=== PATIENT | female | born 1970 | race Caucasian/White ===

== ENCOUNTER 2021-08-14 17:30 | Inpatient (IN) | payer BC, OTHER ==
[~2021-08-14] VITALS: Ht 152.4 cm; Wt 59.0 kg
[2021-08-14 17:45] VITALS: BP_SYST 120
[2021-08-14 18:33] LABS: MEAN CORPUSCULAR HEMOGLOBIN 28 pg (27-31); MEAN CORPUSCULAR HGB CONC 34 % (32-36); MEAN CORPUSCULAR VOLUME 83 fL (79.0-98.0); RED BLOOD CELL COUNT(AUTO) 2.16 MIL/uL (4.2-6.2); RED CELL DISTRIBUTION WIDTH 14.9 % (9.0-15.0); WHITE BLOOD COUNT (AUTO) 9.7 K/uL (4.8-10.8)
[2021-08-14 18:40] LABS: HEMATOCRIT 17.8 % (36-48); PLATELET COUNT (AUTO) 20 K/uL (130-430)
[2021-08-14 18:43] LABS: ANION GAP 6 (5-15); CALCIUM 8.2 mg/dL (8.4-11.0); CHLORIDE 93 mmol/L (98-107); CREATININE 0.47 mg/dL (0.55-1.30); GLUCOSE 170 mg/dL (70-99); POTASSIUM 3.6 mmol/L (3.5-5.1); SODIUM SERUM 127 mmol/L (136-145); UREA NITROGEN, BLOOD 12 mg/dL (8-21)
[2021-08-14 18:50] LABS: ATYPICAL LYMPHOCYTES % 2 % (0-0); BAND % (MANUAL) 1 % (0-6); BASOPHILS % (MANUAL) 0 % (0-2); BLASTS, MANUAL % 5 % (0-0); CORRECTED WHITE BLOOD COUNT 6.4 K/uL (4.5-11.0); EOSINOPHILS % (MANUAL) 0 % (0-7); LYMPHOCYTES % (MANUAL) 36 % (20-46); METAMYELOCYTES % 0 % (0-0); MONOCYTES % (MANUAL) 13 % (0-11); MYELOCYTES % 0 % (0-0); PROMYELOCYTES % 0 % (0-0)
[2021-08-14 18:58] LABS: ALANINE AMINOTRANSFERASE 16 U/L (12-78); ALBUMIN 2.7 g/dL (3.4-4.8); ASPARTATE AMINOTRANSFERASE 15 U/L (10-37); THYROID STIMULATING HORMONE 1.67 uIu/mL (0.36-3.74); TOTAL BILIRUBIN 0.9 mg/dL (0.0-1.0)
[2021-08-14 19:08] LABS: GFR AFRICAN AMERICAN 180 mL/min (>90)
[2021-08-14] MEDS ORDERED: MUPIROCIN 2% TOPICAL OINTMENT 22 GM NS PRN (20:30)
[2021-08-14] MEDS ORDERED: POTASSIUM CHLORIDE 20 MEQ TAB.PRT.SR PO PRN (20:30)
[2021-08-14] MEDS ORDERED: LORazepam 2 MG/ML VIAL IVP PRN (20:30)
[2021-08-14] MEDS ORDERED: ZOLPIDEM TARTRATE 5 MG TABLET PO PRN (20:30)
[2021-08-14] MEDS ORDERED: MORPHINE 2 MG/ML INJ. SYRINGE IVP PRN ×2 (20:30)
[2021-08-14] MEDS ORDERED: DOCUSATE SODIUM 100 MG CAPSULE PO PRN (20:30)
[2021-08-14] MEDS ORDERED: MAGNESIUM SULFATE 50 ML IV PRN (20:30)
[2021-08-14] MEDS: NACL 0.9% 1,000 ML IV SCH ×2 (20:30→23:30)
[2021-08-14] MEDS ORDERED: DIPH28.44 (20:57)
[2021-08-14] MEDS ORDERED: ACYC400T5 PO (20:57)
[2021-08-14] MEDS ORDERED: ATOV750O PO (20:57)
[2021-08-14] MEDS ORDERED: DIPH25CA83 PO (20:57)
[2021-08-14] MEDS ORDERED: MOM PO (20:57)
[2021-08-14] MEDS ORDERED: EMLA (20:57)
[2021-08-14] MEDS ORDERED: CHOL100062 PO (20:57)
[2021-08-14] MEDS ORDERED: COLL100 PO (20:57)
[2021-08-14] MEDS ORDERED: TRIA15CR2 (20:57)
[2021-08-14] MEDS ORDERED: PROC-11 PO (20:57)
[2021-08-14] MEDS ORDERED: OXYC-521 PO (20:57)
[2021-08-14] MEDS ORDERED: ASCO-339 PO (20:57)
[2021-08-14] MEDS ORDERED: TRAM50TA2 PO (20:57)
[2021-08-14] MEDS ORDERED: ISAV186C2 PO (20:57)
[2021-08-14] MEDS ORDERED: SUCR1ORA2 PO (20:57)
[2021-08-14] MEDS ORDERED: TACR0.5C PO (20:57)
[2021-08-14] MEDS ORDERED: URSO300C24 PO (20:57)
[2021-08-14] MEDS ORDERED: MAGN27TA2 PO (20:57)
[2021-08-14] MEDS ORDERED: PRO40 PO (20:57)
[2021-08-14 21:24] LABS: TOTAL IRON BIND. CAPACITY 208 ug/dL (250-450)
[2021-08-14] MEDS ORDERED: oxyCODONE HCL 5 MG TABLET PO ONE (21:45)
[2021-08-14] MEDS ORDERED: OXYCODONE/ACETAMINOPHEN 5-325 TABLET ONE (22:09)
[2021-08-14] MEDS ORDERED: COMMUNICATION ORDER XX ONE (22:45)
[2021-08-14] MEDS ORDERED: HYDROCORTISONE 10 MG TABLET (CORTEF) PO ONE (22:45)
[2021-08-15 00:23] VITALS: BP_SYST 106
[2021-08-15 02:00] VITALS: BP_SYST 123
[2021-08-15] MEDS: ACETAMINOPHEN 325 MG TABLET PO PRN ×4 (03:42→11:51)
[2021-08-15] MEDS: DIPHENHYDRAMINE INJ 50 MG/ML VIAL IVP PRN ×3 (03:42→23:22)
[2021-08-15] MEDS: ONDANSETRON HCL 4 MG/2 ML VIAL IVP PRN ×2 (07:47→23:24)
[2021-08-15] MEDS: NACL 0.9% 1,000 ML IV SCH ×2 (07:48→23:21)
[2021-08-15 08:00] VITALS: BP_SYST 125
[2021-08-15 08:38] LABS: MEAN CORPUSCULAR HEMOGLOBIN 29 pg (27-31); MEAN CORPUSCULAR HGB CONC 34 % (32-36); MEAN CORPUSCULAR VOLUME 85 fL (79.0-98.0); RED BLOOD CELL COUNT(AUTO) 2.38 MIL/uL (4.2-6.2); RED CELL DISTRIBUTION WIDTH 15.2 % (9.0-15.0); WHITE BLOOD COUNT (AUTO) 5.9 K/uL (4.8-10.8)
[2021-08-15 08:54] LABS: CALCIUM 8.1 mg/dL (8.4-11.0); CREATININE 0.42 mg/dL (0.55-1.30); POTASSIUM 3.3 mmol/L (3.5-5.1)
[2021-08-15] MEDS ORDERED: POTASSIUM CHLORIDE 20 MEQ TAB.PRT.SR PO ONE (09:45)
[2021-08-15] MEDS ORDERED: HYDROCORTISONE 10 MG TABLET (CORTEF) PO ONE (10:15)
[2021-08-15 10:53] LABS: HEMATOCRIT 20.2 % (36-48); HEMOGLOBIN 6.9 g/dL (12.0-16.0)
[2021-08-15 10:54] LABS: PLATELET COUNT (AUTO) 16 K/uL (130-430)
[2021-08-15 12:00] VITALS: BP_SYST 122
[2021-08-15] MEDS: oxyCODONE HCL 5 MG TABLET PO PRN ×2 (12:46→19:01)
[2021-08-15 13:03] LABS: CORRECTED WHITE BLOOD COUNT 3.8 K/uL (4.5-11.0)
[2021-08-15 13:04] LABS: BASOPHILS % (MANUAL) 0 % (0-2); EOSINOPHILS % (MANUAL) 3 % (0-7); LYMPHOCYTES % (MANUAL) 58 % (20-46); MONOCYTES % (MANUAL) 20 % (0-11)
[2021-08-15 16:00] VITALS: BP_SYST 129
[2021-08-15 21:25] LABS: HEMATOCRIT 22.8 % (36-48); HEMOGLOBIN 7.8 g/dL (12.0-16.0); MEAN CORPUSCULAR HEMOGLOBIN 29 pg (27-31); MEAN CORPUSCULAR HGB CONC 34 % (32-36); MEAN CORPUSCULAR VOLUME 84 fL (79.0-98.0); RED BLOOD CELL COUNT(AUTO) 2.71 MIL/uL (4.2-6.2); RED CELL DISTRIBUTION WIDTH 15.2 % (9.0-15.0); WHITE BLOOD COUNT (AUTO) 4.3 K/uL (4.8-10.8)
[2021-08-15 22:15] LABS: PLATELET COUNT (AUTO) 15 K/uL (130-430)
[2021-08-15] MEDS ORDERED: oxyCODONE HCL 5 MG TABLET PO ONE (22:15)
[2021-08-15 23:20] LABS: ATYPICAL LYMPHOCYTES % 7 % (0-0); BAND % (MANUAL) 7 % (0-6); EOSINOPHILS % (MANUAL) 0 % (0-7); LYMPHOCYTES % (MANUAL) 75 % (20-46); MONOCYTES % (MANUAL) 0 % (0-11)
[2021-08-15 23:21] LABS: BASOPHILS % (MANUAL) 0 % (0-2)
[2021-08-15 23:22] LABS: CORRECTED WHITE BLOOD COUNT 2.5 K/uL (4.5-11.0)
[2021-08-16 00:42] VITALS: BP_SYST 134
[2021-08-16] MEDS: NACL 0.9% 1,000 ML IV SCH (06:18)
[2021-08-16 07:02] LABS: HEMATOCRIT 22.2 % (36-48); HEMOGLOBIN 7.6 g/dL (12.0-16.0); MEAN CORPUSCULAR HEMOGLOBIN 29 pg (27-31); MEAN CORPUSCULAR HGB CONC 34 % (32-36); MEAN CORPUSCULAR VOLUME 85 fL (79.0-98.0); RED BLOOD CELL COUNT(AUTO) 2.61 MIL/uL (4.2-6.2); RED CELL DISTRIBUTION WIDTH 14.9 % (9.0-15.0); WHITE BLOOD COUNT (AUTO) 4.6 K/uL (4.8-10.8)
[2021-08-16 08:00] VITALS: BP_SYST 126
[2021-08-16 08:31] LABS: PLATELET COUNT (AUTO) 16 K/uL (130-430)
[2021-08-16] MEDS: oxyCODONE HCL 5 MG TABLET PO PRN (08:39)
[2021-08-16] MEDS: ONDANSETRON HCL 4 MG/2 ML VIAL IVP PRN (08:44)
[2021-08-16 10:22] LABS: CALCIUM 7.6 mg/dL (8.4-11.0); POTASSIUM 3.5 mmol/L (3.5-5.1)
[2021-08-16 10:23] LABS: CREATININE 0.44 mg/dL (0.55-1.30)
[2021-08-16 11:58] VITALS: BP_SYST 111
[2021-08-16 13:46] LABS: ATYPICAL LYMPHOCYTES % 4 % (0-0); BAND % (MANUAL) 4 % (0-6); BASOPHILS % (MANUAL) 0 % (0-2); EOSINOPHILS % (MANUAL) 0 % (0-7); LYMPHOCYTES % (MANUAL) 39 % (20-46); METAMYELOCYTES % 5 % (0-0); MONOCYTES % (MANUAL) 9 % (0-11); MYELOCYTES % 4 % (0-0)
[2021-08-16 13:49] LABS: CORRECTED WHITE BLOOD COUNT 2.7 K/uL (4.5-11.0)
== END 2021-08-16 13:15 | disposition left against medical advice (07) | DRG 812 ==
LOC: SED 17:30 → STU 20:23
PROVIDERS: ADMIT General Practice; ATTEND General Practice
PROC: 30233N1 Transfusion of Nonautologous Red Blood Cells into Peripheral Vein, Percutaneous Approach (ICD-10-PCS; principal; 2021-08-15)
DX: D46.9 Myelodysplastic syndrome, unspecified (principal); E87.1 Hypo-osmolality and hyponatremia; E44.0 Moderate protein-calorie malnutrition; Z94.81 Bone marrow transplant status; D50.9 Iron deficiency anemia, unspecified; D69.6 Thrombocytopenia, unspecified; Z20.822 Contact with and (suspected) exposure to COVID-19; D63.8 Anemia in other chronic diseases classified elsewhere; D69.59 Other secondary thrombocytopenia; T45.1X5A Adverse effect of antineoplastic and immunosuppressive drugs, initial encounter; Z53.29 Procedure and treatment not carried out because of patient's decision for other reasons; Z88.8 Allergy status to other drugs, medicaments and biological substances; Z79.899 Other long term (current) drug therapy; Z90.49 Acquired absence of other specified parts of digestive tract; Z90.12 Acquired absence of left breast and nipple; Z85.3 Personal history of malignant neoplasm of breast; Z68.25 Body mass index [BMI] 25.0-25.9, adult; Y92.89 Other specified places as the place of occurrence of the external cause
CPT/HCPCS: 36415; 36430; 76700-TC; 80048; 80053; 82607; 82728; 82746; 83540; 83550; 83735; 84443; 84484; 85007; 85027; 86886; 86900; 86901; 86920; 99285; G0378; J1200; J2405; P9021